=== PATIENT | female | born 1960 | race Caucasian/White ===

== ENCOUNTER → 2016-11-16 | Outpatient (CLI) | payer BC | LOC: MC.RAD 08:50 | DX: Z12.31 Encounter for screening mammogram for malignant neoplasm of breast (principal) ==

== ENCOUNTER 2018-05-19 13:13 | Emergency (ER) | payer BC ==
[~2018-05-19] VITALS: Ht 165.1 cm; Wt 93.2 kg
[2018-05-19 13:40] VITALS: TEMP 98.8
[2018-05-19] MEDS ORDERED: PROAIR HFA0.09 MG/AC IH (14:18)
[2018-05-19] MEDS ORDERED: SINGULAIR 110 MG/TAB PO (14:18)
[2018-05-19] MEDS ORDERED: FLOVENT 110MCG7.9 GM IH (14:19)
[2018-05-19 15:06] VITALS: BP 150/85; PULSE 65
== END 2018-05-19 15:12 | disposition home or self-care (01) ==
LOC: COL.ER 13:13
DX: S30.0XXA Contusion of lower back and pelvis, initial encounter (principal); M19.90 Unspecified osteoarthritis, unspecified site; Z79.51 Long term (current) use of inhaled steroids; W00.0XXA Fall on same level due to ice and snow, initial encounter; Y92.22 Religious institution as the place of occurrence of the external cause

== ENCOUNTER → 2018-12-28 | Outpatient (CLI) | payer BC ==
[~2018-12-28] MED LIST: FLOVENT 110MCG7.9 GM IH; PROAIR HFA0.09 MG/AC IH; SINGULAIR 110 MG/TAB PO
== END ==
LOC: COL.LAB 09:23
DX: Z01.89 Encounter for other specified special examinations (principal)

== ENCOUNTER → 2018-12-30 | Outpatient (CLI) | payer BC ==
[2018-12-30 12:12] LABS: COLLECTION METHOD CLEAN CATCH
[2018-12-30 12:19] LABS: BASO % 0.6 % (0.0-2.0); EOS # 0.2 (0.0-0.7); EOS % 2.6 % (0-4.0); GRAN # 4.8 (1.4-6.5); GRAN % 73.7 % (42.2-75.2); HEMATOCRIT 44.4 % (37.0-47.0); HEMOGLOBIN 15.1 g/dl (12.5-16.0); LYMPH # 0.9 (1.2-3.4); MEAN CELL VOLUME 94 fl (80.0-100.0); MEAN CORPUSCULAR HEMOGLOBIN 32 pg (27.0-31.0); MEAN CORPUSCULAR HGB CONC 34 g/dl (33.0-37.0); MEAN PLATELET VOLUME 10.6 fl (7.4-10.4); MONO # 0.6 (0.1-0.6); MONO % 8.8 % (1.7-9.3); PLATELET COUNT 225 K/mm3 (130-400); RED BLOOD COUNT 4.74 M/mm3 (4.10-5.30); REDCELL DISTRIBUTION WIDTH-CV 12.6 % (11.5-14.5)
[2018-12-30 12:22] LABS: PH 7 (5-8); SQUAMOUS EPITHELIAL None Seen /hpf; URINE APPEARANCE Clear; URINE BACTERIA None Seen /hpf; URINE BILIRUBIN Negative (NEGATIVE); URINE BLOOD Negative (NEGATIVE); URINE COLOR Colorless; URINE GLUCOSE Negative (NEGATIVE); URINE KETONE Negative (NEGATIVE); URINE LEUKOCYTE ESTERASE Negative (NEGATIVE); URINE NITRATE Negative (NEGATIVE); URINE PROTEIN(semi-quant) Negative (NEGATIVE); URINE RBC None Seen /hpf; URINE UROBILINOGEN Negative (NEGATIVE)
[2018-12-30 12:36] LABS: ALBUMIN 4.3 gm/dL (3.5-5.0); BILIRUBIN,TOTAL 1.4 mg/dL (0.0-1.0); CHOLESTEROL RISK RATIO 3.6; CREATININE, serum 0.64 (0.52-1.25); POTASSIUM 4.2 mmol/L (3.4-5.0); TOTAL PROTEIN 7.6 gm/dL (6.4-8.2)
== END ==
LOC: COL.LAB 11:40
PROVIDERS: Internal Medicine
DX: Z00.00 Encounter for general adult medical examination without abnormal findings (principal)

== ENCOUNTER → 2019-02-04 | Outpatient (CLI) | payer BC | LOC: MC.RAD 16:00 | DX: Z12.31 Encounter for screening mammogram for malignant neoplasm of breast (principal); Z98.82 Breast implant status ==

== ENCOUNTER → 2020-03-09 | Outpatient (CLI) | payer BC | LOC: MC.RAD 16:05 | DX: Z12.31 Encounter for screening mammogram for malignant neoplasm of breast (principal); Z98.82 Breast implant status ==

== ENCOUNTER → 2021-05-26 | Outpatient (CLI) | payer BC | LOC: MC.RAD 15:02 | DX: Z12.31 Encounter for screening mammogram for malignant neoplasm of breast (principal) ==

== ENCOUNTER → 2022-05-30 | Outpatient (CLI) | payer BC | LOC: MC.RAD 15:44 | DX: Z12.31 Encounter for screening mammogram for malignant neoplasm of breast (principal) ==

== ENCOUNTER → 2023-05-17 | Outpatient (CLI) | payer BC | LOC: COL.RAD 17:47 | DX: M79.641 Pain in right hand (principal) ==

== ENCOUNTER → 2023-05-31 | Outpatient (CLI) | payer BC | LOC: MC.RAD 07:16 | DX: Z12.31 Encounter for screening mammogram for malignant neoplasm of breast (principal) ==